=== PATIENT | female | born 1985 | race Caucasian/White ===

== ENCOUNTER 2017-04-13 22:45 | Emergency (ER) | payer MEDICAID ==
[~2017-04-13] VITALS: Ht 157.5 cm; Wt 53.0 kg
[~2017-04-13 22:45] MED LIST: ALLO300T2 PO; ALPR0.5T3 PO; BACT800T5 PO; FERR1TAB36 PO; HYDR25TA5 PO; MEDR150I IM; MICR10CA PO; PERC5TAB12 PO; PROM25TA5 PO; PYRI100T PO
[2017-04-13 22:55] VITALS: BP 102/71; PULSE 119; RESP 20; TEMP 98.2; O2SAT 98
[2017-04-13] MEDS ORDERED: ONDANSETRON HCL 4 MG/2 ML VIAL IV PUSH ONE (23:00)
[2017-04-13] MEDS ORDERED: PANTOPRAZOLE SODIUM 40 MG VIAL IV PUSH ONE (23:00)
[2017-04-13] MEDS ORDERED: SODIUM CHLOR 0.9% 1000 ML INJ 1,000 ML IV ONE ×2 (23:00)
[2017-04-13] MEDS ORDERED: HYDROmorphone HCL PF 2 MG/ML VIAL IV PUSH ONE (23:00)
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
[2017-04-13 23:25] LABS: AUTOMATED NEUTROPHIL # 5.1 TH/MM3 (1.8-7.7); BASOPHIL % 0.3 % (0.0-2.0); EOSINOPHIL # 0.2 TH/MM3 (0-0.4); EOSINOPHIL % 3.2 % (0.0-4.0); HEMO FLAGS DIFF FINAL; LYMPH % 27.2 % (9.0-44.0); LYMPHOCYTE # 2.1 TH/MM3 (1.0-4.8); MEAN CELL VOLUME 83.5 FL (80.0-100.0); MEAN CORPUSCULAR HEMOGLOBIN 27.8 PG (27.0-34.0); MEAN CORPUSCULAR HGB CONC 33.2 % (32.0-36.0); MONO % 4.6 % (0.0-8.0); NEUT % 64.7 % (16.0-70.0); PLATELET COUNT 277 TH/MM3 (150-450); RED BLOOD COUNT 5.27 MIL/MM3 (4.00-5.30); RED CELL DISTRIBUTION WIDTH 12.4 % (11.6-17.2); WHITE BLOOD COUNT 7.8 TH/MM3 (4.0-11.0)
[2017-04-13] MEDS ORDERED: ALUMINUM/MAGNESIUM/SIMETH 30 ML CUP PO ONE (23:30)
[2017-04-13 23:32] LABS: CHLORIDE 105 MEQ/L (98-107); POTASSIUM 3.9 MEQ/L (3.5-5.1); SODIUM (NA) 143 MEQ/L (136-145)
[2017-04-13 23:36] LABS: ANION GAP 7 MEQ/L (5-15); BLOOD UREA NITROGEN 16 MG/DL (7-18)
[2017-04-13 23:38] LABS: BLOOD, URINE LARGE (NEG); GLUCOSE,URINE NEG (NEG); KETONE, URINE NEG (NEG); NITRITE,URINE NEG (NEG)
[2017-04-13 23:38] LABS: ALT (GPT) 32 U/L (10-53)
[2017-04-13 23:39] LABS: AST (GOT) 23 U/L (15-37); GLOMERULAR FILTRATION RATE 74 ML/MIN (>89)
[2017-04-13 23:40] LABS: TOTAL BILIRUBIN ADULT 0.2 MG/DL (0.2-1.0)
[2017-04-13 23:41] LABS: ALKALINE PHOSPHATASE 79 U/L (45-117)
[2017-04-13] MEDS ORDERED: PROT40TA PO (23:44)
[2017-04-13 23:51] VITALS: BP 111/72; PULSE 97; RESP 19; O2SAT 98
[2017-04-13 23:54] LABS: URINE COLOR ORANGE (YELLW/STRAW)
[2017-04-13 23:55] LABS: MUCUS URINE FEW /lpf (OCC); RBC, URINE INNUM /hpf (0-3)
[2017-04-13 23:56] LABS: COMMENT (UR) CULT NOT INDICATED; CULTURE IF INDICATED CULT NOT INDICATED
[2017-04-14] MEDS ORDERED: FERR324T4 PO (00:07)
[2017-04-14] MEDS ORDERED: POTA4.25 PO (00:07)
[2017-04-14] MEDS ORDERED: TRAZ50TA12 PO (00:07)
[2017-04-14] MEDS ORDERED: PROZ40CA PO (00:07)
[2017-04-14 00:11] VITALS: BP 112/65
--- NOTE | 2017-04-14 16:35 | EKG ---
Date Performed: 04/13/2017 Time Performed: 22:51:20 PTAGE: 31 years EKG: Sinus tachycardia Possible right atrial abnormality Poor R wave progression - probable norm al variant Borderline ECG Compared to the PREVIOUS TRACING from 03/27/13, probably no significant change DOCTOR: Brett Reyes Interpretating Date/Time 04/14/2017 16:35:04
== END 2017-04-14 00:18 | disposition home or self-care (01) ==
LOC: PHED 22:45
DX: K22.70 Barrett's esophagus without dysplasia (principal); K29.70 Gastritis, unspecified, without bleeding; I25.10 Atherosclerotic heart disease of native coronary artery without angina pectoris; F17.210 Nicotine dependence, cigarettes, uncomplicated; Z87.442 Personal history of urinary calculi; R00.0 Tachycardia, unspecified
CPT/HCPCS: 80053; 81001; 83690; 85025; 93005; 96361; 96374; 96375; 99284; C9113; J1170; J2405; J7030

== ENCOUNTER 2017-04-14 11:45 | Emergency (ER) | payer MEDICAID ==
[~2017-04-14] VITALS: Ht 157.5 cm; Wt 52.0 kg
[~2017-04-14 11:45] MED LIST changes: +FERR324T4 PO; +POTA4.25 PO; +PROT40TA PO; +PROZ40CA PO; +TRAZ50TA12 PO
[2017-04-14 11:50] VITALS: BP 99/75; PULSE 114; RESP 18; TEMP 97.5; O2SAT 100
[2017-04-14] MEDS ORDERED: MORPHINE SULFATE 4 MG/ML INJ IM ONE (12:45)
[2017-04-14] MEDS ORDERED: LIDOCAINE VISCOUS 2% SOLN 15 ML UDC PO ONE (12:45)
[2017-04-14] MEDS ORDERED: ONDANSETRON HCL 4 MG/2 ML VIAL IV PUSH ONE (12:45)
[2017-04-14] MEDS ORDERED: ALUMINUM/MAGNESIUM/SIMETH 30 ML CUP PO ONE (12:45)
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
--- NOTE | 2017-04-15 14:03 | EKG ---
Date Performed: 04/14/2017 Time Performed: 11:44:28 PTAGE: 31 years EKG: Sinus tachycardia. Poor R wave progression - probable normal variant Borderline ECG Compare d to prior tracing no significant change PREVIOUS TRACING : 04/13/2017 22.51 DOCTOR: Carlo Hairston Interpretating Date/Time 04/15/2017 13:57:28
== END 2017-04-14 13:19 | disposition home or self-care (01) ==
LOC: PHEFT 11:45
DX: G89.4 Chronic pain syndrome (principal)
CPT/HCPCS: 93005; 96372; 96374; 99284; J2270; J2405

== ENCOUNTER 2017-04-26 14:37 | Emergency (ER) | payer MEDICAID ==
[~2017-04-26] VITALS: Ht 157.5 cm; Wt 48.0 kg
[~2017-04-26 14:37] MED LIST changes: -BACT800T5 PO; -FERR1TAB36 PO; -MICR10CA PO; -PROM25TA5 PO
[2017-04-26 14:45] VITALS: BP 128/88; PULSE 107; RESP 20; TEMP 98.1; O2SAT 100
[2017-04-26] MEDS ORDERED: SUCR1S PO (15:35)
[2017-04-26] MEDS ORDERED: PROM1SUP9 RECTAL (15:35)
--- NOTE | 2017-04-26 15:35 | PD ---
HPI Chief Complaint: Abdominal Pain Time Seen by Provider: 14:50 Travel History International Travel<30 days: No Contact w/Intl Traveler<30days: No Traveled to known affect area: No History of Present Illness HPI So 31 year-old woman presents emergency Department with recurrent epigastric abdominal pain associated with nausea vomiting. She describes both a keeping fluids down. She is a history of chronic recurrent abdominal pain attributed to colitis. She's had endometriosis in the past. She takes opiates regularly. She states this epigastric pain is new for her. Been persistent for the past several weeks. She's been try to get into see her GI doctor but has been unable to so far. She states she's been told she has delayed gastric emptying in the past. Does not appear history of gastritis or pancreatitis. She seen emergency department twice prior for the same symptoms. She had negative labs. History Past Medical History Narrative Medical Chronic recurrent abdominal pain Colitis : 1 Para: 1 Social History Alcohol Use: Yes (OCC) Tobacco Use: Yes (<1/2 PPD) Allergies-Medications (Allergen,Severity, Reaction): Coded Allergies: Cephalosporins (Verified Allergy, Severe, UNKNOWN, 04/26/17) PATIENT STATES " I DO NOT KNOW WHAT REACTION I GET" Cipro (Verified Allergy, Severe, RASH, 04/26/17) Dilantin (Verified Allergy, Severe, Rash, 04/26/17) Erythromycins (Verified Allergy, Severe, UNKNOWN REACTION, 04/26/17) Penicillin (Verified Allergy, Severe, UNKNOWN, 04/26/17) PATIENT STATES " I DO NOT KNOW WHAT REACTION I GET" Reglan (Verified Allergy, Severe, Restlessness, 04/26/17) Nonsteroidal Anti-Inflammatory Agts (Verified Adverse Reaction, Severe, SEVERE ABD PAIN, 04/26/17) Toradol (Verified Adverse Reaction, Unknown, 04/26/17) PT REQUESTED TO ADD TORADOL DUE TO HER GI ISSUES Reported Meds & Prescriptions Reported Meds & Active Scripts Active Promethazine Supp (Promethazine HCl) 25 Mg Supp 25 Mg RECTAL Q6H PRN Sucralfate Liq (Sucralfate) 1 Gm/10 Ml Paige 1 Gm PO QID on empty stomach Protonix (Pantoprazole Sodium) 40 Mg Tab 40 Mg PO DAILY Reported Trazodone (Trazodone HCl) 50 Mg Tab 200 Mg PO HS Prozac (Fluoxetine HCl) 40 Mg Cap 40 Mg PO DAILY Potassium Citrate ER 15 Meq Tab 15 Meq PO TID Ferrous Sulfate DR (Ferrous Sulfate) 324 Mg Tabdr 324 Mg PO TID Percocet (Oxycodone-Acetaminophen) 5-325 mg Tab 1-2 Tab PO Q4H PRN Vitamin B-6 (Pyridoxine HCl) 100 Mg Tab 100 Mg PO DAILY Medroxyprogesterone Inj 150 Mg/Ml Inj 150 Mg IM Q90D Hydrochlorothiazide 25 Mg Tab 25 Mg PO DAILY Alprazolam 0.5 Mg Tab 0.5 Mg PO Q8H Allopurinol 300 Mg Tab 300 Mg PO DAILY Review of Systems Except as stated in HPI: all other systems reviewed are Neg Physical Exam Narrative GENERAL: Well-appearing 31 year-old woman, thin, appears uncomfortable but nontoxic. SKIN: Focused skin assessment warm/dry. NECK: Trachea midline. No JVD. CARDIOVASCULAR: Regular rate and rhythm. No murmur appreciated. RESPIRATORY: No accessory muscle use. Clear to auscultation. Breath sounds equal bilaterally. GASTROINTESTINAL: Abdomen soft, non-tender, nondistended. Hepatic and splenic margins not palpable. RECTAL: Light brown stool in rectal vault. Guaiac negative. MUSCULOSKELETAL: No obvious deformities. No clubbing. No cyanosis. No edema. NEUROLOGICAL: Awake and alert. No obvious cranial nerve deficits. Motor grossly within normal limits. Normal speech. Data Data Last Documented VS Vital Signs Date Time Temp Pulse Resp B/P Pulse Ox O2 Delivery O2 Flow Rate FiO2 04/26/17 14:45 98.1 107 20 128/88 100 Orders Al-Mag Hy-Si 40-40-4 Mg/Ml Liq (Mag-Al P (04/26/17 15:45) Lidocaine 2% Viscous (Xylocaine 2% Visco (04/26/17 15:45) Ondansetron Odt (Zofran Odt) (04/26/17 15:45) Prochlorperazine Inj (Compazine Inj) (04/26/17 16:00) MDM Medical Decision Making Medical Screen Exam Complete: Yes Emergency Medical Condition: Yes Medical Record Reviewed: Yes Differential Diagnosis Acute recurrent abdominal pain, gastritis, pancreatitis, narcotic bowel, gastroparesis, other Narrative Course Medical decision making 31 year-old woman with multiple abdominal problems. She said has had recurrent problems worsened recently. She is not been able to follow-up with her GI doctor. She may be having some worsening gastroparesis episodes, may be having more gastritis episodes. Previous labs were negative. I don't think she has cholecystitis. Lipase was normal with this episode earlier. She certainly seems uncomfortable. Some of this may be tied into her chronic opiate use as well. She's has filled 180 Percocet in the last month alone. We'll recommend she continue her PPI, she states promethazine better than Zofran for her. We' ll add sucralfate. We'll recommend follow-up with her GI doctor soon as possible for further evaluation of the symptoms. Diagnosis Primary Impression: Chronic pain Additional Impression: Gastritis Additional Instructions: Take sucralfate in addition to current medications. Follow-up with your wire dropper at the first available appointment. Use Phenergan as needed for nausea or vomiting. Med/Other Pt SpecificInfo: Prescription(s) given Scripts Promethazine Supp 25 Mg Supp25 Mg RECTAL Q6H PRN (NAUSEA OR VOMITING) #20 SUPP Ref 0 Prov:Sanju Cronin MD 04/26/17 Sucralfate Liq 1 Gm/10 Ml Sus1 Gm PO QID #1200 ML on empty stomach Prov:Sanju Cronin MD 04/26/17 Disposition: 01 DISCHARGE HOME Condition: Stable Sanju Cronin MD Apr 26, 2017 15:35 Sanju Cronin MD Apr 26, 2017 15:35
[2017-04-26] MEDS ORDERED: ALUMINUM/MAGNESIUM/SIMETH 30 ML CUP PO ONE ×2 (15:45→17:00)
[2017-04-26] MEDS ORDERED: LIDOCAINE VISCOUS 2% SOLN 15 ML UDC PO ONE ×2 (15:45→17:00)
[2017-04-26] MEDS ORDERED: ONDANSETRON ODT 4 MG TAB PO ONE (15:45)
[2017-04-26] MEDS ORDERED: PROCHLORPERAZINE INJ 10 MG/2 ML VIAL IM ONE (16:00)
[2017-04-26] MEDS ORDERED: diphenhydrAMINE HCL 50 MG/ML VIAL IM ONE (16:15)
--- NOTE | 2017-04-26 16:48 | PD ---
Data Data Last Documented VS Vital Signs Date Time Temp Pulse Resp B/P Pulse Ox O2 Delivery O2 Flow Rate FiO2 04/26/17 17:03 101 20 110/72 100 04/26/17 14:45 98.1 Orders Al-Mag Hy-Si 40-40-4 Mg/Ml Liq (Mag-Al P (04/26/17 15:45) Lidocaine 2% Viscous (Xylocaine 2% Visco (04/26/17 15:45) Ondansetron Odt (Zofran Odt) (04/26/17 15:45) Prochlorperazine Inj (Compazine Inj) (04/26/17 16:00) Diphenhydramine Inj (Benadryl Inj) (04/26/17 16:15) Complete Blood Count With Diff (04/26/17 16:47) Comprehensive Metabolic Panel (04/26/17 16:47) Lipase (04/26/17 16:47) Urinalysis - C+S If Indicated (04/26/17 16:47) Iv Access Insert/Monitor (04/26/17 16:47) Ecg Monitoring (04/26/17 16:47) Oximetry (04/26/17 16:47) Sodium Chloride 0.9% Flush (Ns Flush) (04/26/17 17:00) Al-Mag Hy-Si 40-40-4 Mg/Ml Liq (Mag-Al P (04/26/17 17:00) Lidocaine 2% Viscous (Xylocaine 2% Visco (04/26/17 17:00) Ed Urine Pregnancytest Poc (04/26/17 16:47) Urine Culture (04/26/17 16:55) Labs Laboratory Tests Test 04/26/17 04/26/17 16:50 16:55 White Blood Count 5.9 TH/MM3 Red Blood Count 5.21 MIL/MM3 Hemoglobin 14.2 GM/DL Hematocrit 41.6 % Mean Corpuscular Volume 79.9 FL Mean Corpuscular Hemoglobin 27.2 PG Mean Corpuscular Hemoglobin 34.0 % Concent Red Cell Distribution Width 11.6 % Platelet Count 271 TH/MM3 Mean Platelet Volume 7.2 FL Neutrophils (%) (Auto) 67.8 % Lymphocytes (%) (Auto) 23.0 % Monocytes (%) (Auto) 6.5 % Eosinophils (%) (Auto) 1.6 % Basophils (%) (Auto) 1.1 % Neutrophils # (Auto) 3.9 TH/MM3 Lymphocytes # (Auto) 1.4 TH/MM3 Monocytes # (Auto) 0.4 TH/MM3 Eosinophils # (Auto) 0.1 TH/MM3 Basophils # (Auto) 0.1 TH/MM3 CBC Comment DIFF FINAL Differential Comment Sodium Level 141 MEQ/L Potassium Level 4.0 MEQ/L Chloride Level 106 MEQ/L Carbon Dioxide Level 26.0 MEQ/L Anion Gap 9 MEQ/L Blood Urea Nitrogen 13 MG/DL Creatinine 0.77 MG/DL Estimat Glomerular Filtration 87 ML/MIN Rate Random Glucose 103 MG/DL Calcium Level 9.3 MG/DL Total Bilirubin 0.3 MG/DL Aspartate Amino Transf 23 U/L (AST/SGOT) Alanine Aminotransferase 28 U/L (ALT/SGPT) Alkaline Phosphatase 69 U/L Total Protein 7.4 GM/DL Albumin 3.8 GM/DL Lipase 188 U/L Urine Color YELLOW Urine Turbidity CLOUDY Urine pH 8.0 Urine Specific [place] 1.021 Urine Protein NEG mg/dL Urine Glucose (UA) NEG mg/dL Urine Ketones NEG mg/dL Urine Occult Blood NEG Urine Nitrite NEG Urine Bilirubin NEG Urine Leukocyte Esterase SMALL Urine RBC 0-3 /hpf Urine WBC 9-14 /hpf Urine Squamous Epithelial 0-5 /hpf Cells Urine Amorphous Sediment LARGE Urine Bacteria RARE /hpf Microscopic Urinalysis Comment CULTURE INDICATED MDM Supervised Visit with VANIA: No Narrative Course Patient is a 31-year-old female with a history of chronic abdominal pain presents emergency Department with epigastric burning and acid taste in her mouth present for the past 2 days. Patient states she's been trying to get to see her GI doctor as well as her roof cement and paint maker helper and not been able to and decided to come into the emergency department seen. She denies any fevers. Was asked to see the patient by nursing as she states that she is still having significant discomfort after Phenergan and Benadryl as well as a GI cocktail. Nursing states that they think that she spit up her GI cocktail. I reviewed the patient's a force been on 67 the patient received 90 tablets of oxycodone 10 mg. Patient states she tried these at home but states that it made her pain worse. We'll repeat a GI cocktail and basic labs including lipase at this point. Patient and workup in this department earlier this month including basic labs and was discharged after morphine completely relieved her symptoms but she states this pain is different from the pain she was having before. Symptoms are highly consistent with reflux symptoms. Patient was given a GI cocktail, she was observed in the emergency department and appears quite comfortable and in no obvious distress. I revisited the patient states that she still felt quite comfortable, her labs reviewed with her and CBC CMP and lipase within normal limits. She does have a minimal evidence of urinary tract infection and will be placed on doxycycline and given her multiple medication allergies. Head and at length discussion with the patient about her symptoms at this time I don't think a CAT scan is warranted it was offered to her given she states she feels very uncomfortable but in my opinion is that the risks of radiation exposure outweigh the pretest probability. She agrees to postpone CAT scanning. She states she would just like to feel more comfortable before she goes home. I discussed with her that I don't know if I have anything else to offer her for her symptoms here in the emergency department. I have asked her for her opinions as to where her treatment should proceed at this point and she states that she "is just looking for a quick fix". When asked to clarify she states that she just wants her discomfort to be isolated and fixed. I reiterated that unfortunately I am incapable fixing her symptoms at this time and recommended that she follow up with her GI physician for consideration of endoscopy. She will be placed on Protonix recommended Tums as needed. She is stable for discharge at this time. She related from the emergency department in no obvious distress talking on the cell phone. Diagnosis Primary Impression: Chronic pain Additional Impressions: Gastritis UTI (urinary tract infection) Referrals: Pennie Cotter MD (PCP) call for appointment Bulb Grader call for appointment Patient Instructions: General Instructions, Gastritis (ED), Chronic Abdominal Pain (ED) Departure Forms: Tests/Procedures Additional Instruction: Take sucralfate in addition to current medications. Follow-up with your slab tripper at the first available appointment. Use Phenergan as needed for nausea or vomiting. Also recommend that she follow up with Ze rogers and your roof cement and paint maker helper for consideration of scaling back your need for opiate medications. Scripts Doxycycline Hyclate 100 Mg [id number] Mg PO BID 7 Days Ref 0 Prov:Roberto Prater MD 6/19/17 Pantoprazole (Protonix)40 Mg Tab40 Mg PO DAILY #30 TAB Ref 0 Prov:Roberto Prater MD 04/26/17 Promethazine Supp 25 Mg Supp25 Mg RECTAL Q6H PRN (NAUSEA OR VOMITING) #20 SUPP Ref 0 Prov:Sanju Cronin MD 04/26/17 Sucralfate Liq 1 Gm/10 Ml Sus1 Gm PO QID #1200 ML on empty stomach Prov:Sanju Cronin MD 04/26/17 Disposition: 01 DISCHARGE HOME Condition: Stable Roberto Prater MD Apr 26, 2017 16:48
[2017-04-26 16:58] VITALS: O2SAT 98
[2017-04-26] MEDS ORDERED: SODIUM CHLORIDE 0.9% FLUSH 10 ML FLUSH IV FLUSH PRN (17:00)
[2017-04-26 17:02] LABS: BLOOD, URINE NEG (NEG); GLUCOSE,URINE NEG (NEG); KETONE, URINE NEG (NEG); NITRITE,URINE NEG (NEG)
[2017-04-26 17:03] VITALS: BP 110/72; PULSE 101; RESP 20; O2SAT 100
[2017-04-26 17:03] LABS: AUTOMATED NEUTROPHIL # 3.9 TH/MM3 (1.8-7.7); BASOPHIL # 0.1 TH/MM3 (0-0.2); BASOPHIL % 1.1 % (0.0-2.0); EOSINOPHIL # 0.1 TH/MM3 (0-0.4); EOSINOPHIL % 1.6 % (0.0-4.0); HEMATOCRIT 41.6 % (35.0-46.0); HEMO FLAGS DIFF FINAL; LYMPHOCYTE # 1.4 TH/MM3 (1.0-4.8); MEAN CELL VOLUME 79.9 FL (80.0-100.0); MEAN CORPUSCULAR HEMOGLOBIN 27.2 PG (27.0-34.0); MONO % 6.5 % (0.0-8.0); NEUT % 67.8 % (16.0-70.0); PLATELET COUNT 271 TH/MM3 (150-450); RED BLOOD COUNT 5.21 MIL/MM3 (4.00-5.30); RED CELL DISTRIBUTION WIDTH 11.6 % (11.6-17.2); WHITE BLOOD COUNT 5.9 TH/MM3 (4.0-11.0)
[2017-04-26 17:09] LABS: URINE COLOR YELLOW (YELLW/STRAW)
[2017-04-26 17:10] LABS: BACTERIA, URINE RARE /hpf; COMMENT (UR) CULTURE INDICATED; CULTURE IF INDICATED CULTURE INDICATED; RBC, URINE 0-3 /hpf (0-3); SQUAMOUS EPITHELIAL CELL URINE 0-5 /hpf (0-5)
[2017-04-26 17:14] LABS: CHLORIDE 106 MEQ/L (98-107); SODIUM (NA) 141 MEQ/L (136-145)
[2017-04-26 17:18] LABS: ANION GAP 9 MEQ/L (5-15); BLOOD UREA NITROGEN 13 MG/DL (7-18)
[2017-04-26 17:20] LABS: ALT (GPT) 28 U/L (10-53)
[2017-04-26 17:21] LABS: AST (GOT) 23 U/L (15-37); GLOMERULAR FILTRATION RATE 87 ML/MIN (>89)
[2017-04-26 17:22] LABS: TOTAL BILIRUBIN ADULT 0.3 MG/DL (0.2-1.0)
[2017-04-26 17:23] LABS: ALKALINE PHOSPHATASE 69 U/L (45-117)
[2017-04-26] MEDS ORDERED: DOXY100C PO (17:39)
[2017-04-26] MEDS ORDERED: PROT40TA PO (17:39)
== END 2017-04-26 17:50 | disposition home or self-care (01) ==
LOC: PHED 14:37
DX: G89.29 Other chronic pain (principal); K29.70 Gastritis, unspecified, without bleeding; N39.0 Urinary tract infection, site not specified; F17.210 Nicotine dependence, cigarettes, uncomplicated
CPT/HCPCS: 80053; 81001; 83690; 84703; 85025; 87086; 96372; 99284; J0780; J1200

== ENCOUNTER 2017-06-15 01:20 | Emergency (ER) | payer MEDICAID ==
[~2017-06-15] VITALS: Ht 157.5 cm; Wt 49.5 kg
[~2017-06-15 01:20] MED LIST changes: +DOXY100C PO; +PROM1SUP9 RECTAL; +SUCR1S PO
[2017-06-15 01:28] VITALS: BP 120/87; PULSE 90; RESP 18; TEMP 97.4; O2SAT 100
[2017-06-15 01:43] VITALS: BP 120/87; PULSE 90; RESP 18; TEMP 97.4; O2SAT 100
[2017-06-15] MEDS ORDERED: ONDANSETRON HCL 4 MG/2 ML VIAL IV PUSH ONE (02:15)
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
[2017-06-15 02:26] LABS: AUTOMATED NEUTROPHIL # 3.2 TH/MM3 (1.8-7.7); BASOPHIL # 0.2 TH/MM3 (0-0.2); BASOPHIL % 2.9 % (0.0-2.0); BLOOD, URINE TRACE (NEG); EOSINOPHIL # 0.2 TH/MM3 (0-0.4); EOSINOPHIL % 3.2 % (0.0-4.0); GLUCOSE,URINE NEG (NEG); HEMO FLAGS DIFF FINAL; KETONE, URINE 40 mg/dL (NEG); LYMPH % 37.1 % (9.0-44.0); LYMPHOCYTE # 2.4 TH/MM3 (1.0-4.8); MEAN CELL VOLUME 82.6 FL (80.0-100.0); MEAN CORPUSCULAR HEMOGLOBIN 26.6 PG (27.0-34.0); MEAN CORPUSCULAR HGB CONC 32.2 % (32.0-36.0); NEUT % 52.8 % (16.0-70.0); NITRITE,URINE NEG (NEG); PLATELET COUNT 286 TH/MM3 (150-450); RED BLOOD COUNT 5.57 MIL/MM3 (4.00-5.30); RED CELL DISTRIBUTION WIDTH 13.1 % (11.6-17.2); WHITE BLOOD COUNT 6.3 TH/MM3 (4.0-11.0)
[2017-06-15 02:30] LABS: URINE COLOR YELLOW (YELLW/STRAW)
[2017-06-15 02:31] LABS: WBC, URINE 15-19 /hpf (0-5)
[2017-06-15 02:32] LABS: BACTERIA, URINE FEW /hpf; SQUAMOUS EPITHELIAL CELL URINE > 8 /hpf (0-5)
[2017-06-15 02:33] LABS: CALCIUM OXALATE CRYSTALS,URINE FEW /hpf; COMMENT (UR) CULTURE INDICATED; CULTURE IF INDICATED CULTURE INDICATED; MUCUS URINE MOD /lpf (OCC); POTASSIUM 3.4 MEQ/L (3.5-5.1)
[2017-06-15 02:36] LABS: BICARBONATE 23.7 MEQ/L (21.0-32.0)
[2017-06-15] MEDS ORDERED: ZOFR4TAB3 SL (02:51)
[2017-06-15] MEDS ORDERED: BACT800T5 PO (02:51)
[2017-06-15] MEDS ORDERED: SULFAMETHOXAZOLE-TRIMETHOPRIM DS 800-160 MG TAB PO ONE (03:00)
[2017-06-15] MEDS ORDERED: SODIUM CHLOR 0.9% 1000 ML INJ 1,000 ML IV ONE (03:00)
[2017-06-15] MEDS ORDERED: diphenhydrAMINE HCL 50 MG/ML VIAL IV PUSH ONE (03:00)
== END 2017-06-15 03:11 | disposition home or self-care (01) ==
LOC: PHED 01:20
DX: N39.0 Urinary tract infection, site not specified (principal); G89.4 Chronic pain syndrome; I25.10 Atherosclerotic heart disease of native coronary artery without angina pectoris; F17.210 Nicotine dependence, cigarettes, uncomplicated; Z87.442 Personal history of urinary calculi
CPT/HCPCS: 80048; 81001; 84703; 85025; 87086; 96374; 96375; 99284; J1200; J2405

== ENCOUNTER 2018-02-17 20:00 | Emergency (ER) | payer MEDICAID ==
[~2018-02-17] VITALS: Ht 157.5 cm; Wt 46.3 kg
[~2018-02-17 20:00] MED LIST changes: +BACT800T5 PO; -DOXY100C PO; -MEDR150I IM; -SUCR1S PO; +ZOFR4TAB3 SL
[2018-02-17 20:16] VITALS: BP 138/108; PULSE 113; RESP 18; TEMP 98.9; O2SAT 99
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
[2018-02-17] MEDS ORDERED: SODIUM CHLOR 0.9% 1000 ML INJ 1,000 ML IV ONE (21:16)
[2018-02-17 21:30] VITALS: BP 105/72; PULSE 89; RESP 18; O2SAT 98
[2018-02-17] MEDS ORDERED: SODIUM CHLORIDE 0.9% FLUSH 10 ML FLUSH IVF PRN (21:30)
[2018-02-17] MEDS ORDERED: MORPHINE SULFATE 4 MG/ML INJ IV PUSH ONE (21:30)
[2018-02-17] MEDS ORDERED: ONDANSETRON HCL 4 MG/2 ML VIAL IV PUSH ONE (21:30)
[2018-02-17 22:05] VITALS: BP 110/78; PULSE 75; RESP 18; O2SAT 96
--- NOTE | 2018-02-17 22:05 | RADRPT ---
EXAM DATE/TIME: 02/17/2018 21:42 [facility] COMPARISON: CT ABDOMEN & PELVIS W/O CONTRAST, May 11, 2016, 20:43. INDICATIONS : Left flank pain. History of bilateral renal calculi and obstruction. ORAL CONTRAST: No oral contrast ingested. RADIATION DOSE: 3.97 CTDIvol (mGy) MEDICAL HISTORY : Colitis. Endometriosis. SURGICAL HISTORY : Cervical cone. ENCOUNTER: Initial ACUITY: 2 weeks PAIN SCALE: 8/10 LOCATION: Left flank TECHNIQUE: Volumetric scanning of the abdomen and pelvis was performed. Using automated exposure control and ad justment of the mA and/or kV according to patient size, radiation dose was kept as low as reasonably achievable to obtain optimal diagnostic quality images. DICOM format image data is available electro nically for review and comparison. FINDINGS: LOWER LUNGS: The visualized lower lungs are clear. LIVER: Homogeneous density without lesion. There is no dilation of the biliary tree. No calcified gallston es. SPLEEN: Normal size without lesion. PANCREAS: Within normal limits. KIDNEYS: Normal in size and shape. There are multiple small bilateral 1-2 mm renal calculi with no obstruction . The visualized portions of the ureters are unremarkable. There are low-attenuation areas in the lef t kidney likely representing cysts. ADRENAL GLANDS: Within normal limits. VASCULAR: There is no aortic aneurysm. BOWEL/MESENTERY: The stomach, small bowel, and colon demonstrate no acute abnormality. There is no free intraperitone al air or fluid. ABDOMINAL WALL: Within normal limits. RETROPERITONEUM: There is no lymphadenopathy. BLADDER: No wall thickening or mass. REPRODUCTIVE: Within normal limits. INGUINAL: There is no lymphadenopathy or hernia. MUSCULOSKELETAL: Within normal limits for patient age. CONCLUSION: 1. Multiple small bilateral renal calculi with no evidence of obstruction. 2. Probable left renal cysts. Remi Lucio MD on February 17, 2018 at 22:00 Board Certified Radiologist. This report was verified electronically.
[2018-02-17 22:06] LABS: AUTOMATED NEUTROPHIL # 4.3 TH/MM3 (1.8-7.7); BASOPHIL # 0.3 TH/MM3 (0-0.2); BASOPHIL % 3.7 % (0.0-2.0); EOSINOPHIL # 0.1 TH/MM3 (0-0.4); EOSINOPHIL % 0.8 % (0.0-4.0); HEMATOCRIT 46.8 % (35.0-46.0); HEMOGLOBIN 15.8 GM/DL (11.6-15.3); LYMPH % 25.5 % (9.0-44.0); LYMPHOCYTE # 1.8 TH/MM3 (1.0-4.8); MEAN CELL VOLUME 81.6 FL (80.0-100.0); MEAN CORPUSCULAR HEMOGLOBIN 27.6 PG (27.0-34.0); MEAN CORPUSCULAR HGB CONC 33.8 % (32.0-36.0); MEAN PLATELET VOLUME 8.4 FL (7.0-11.0); MONO % 5.2 % (0.0-8.0); MONOCYTE # 0.4 TH/MM3 (0-0.9); NEUT % 64.8 % (16.0-70.0); PLATELET COUNT 278 TH/MM3 (150-450); RED BLOOD COUNT 5.73 MIL/MM3 (4.00-5.30); RED CELL DISTRIBUTION WIDTH 12.3 % (11.6-17.2); WHITE BLOOD COUNT 6.9 TH/MM3 (4.0-11.0)
[2018-02-17 22:09] LABS: CALCIUM 9.3 MG/DL (8.5-10.1)
[2018-02-17 22:10] LABS: BICARBONATE 26.9 MEQ/L (21.0-32.0)
[2018-02-17 22:14] LABS: CREATININE 0.72 MG/DL (0.50-1.00)
[2018-02-17 22:25] LABS: BILIRUBIN, URINE NEG (NEG); BLOOD, URINE SMALL (NEG); GLUCOSE,URINE NEG (NEG); KETONE, URINE NEG (NEG); NITRITE,URINE NEG (NEG); URINE COLOR YELLOW (YELLW/STRAW); URINE LEUKOCYTE ESTERASE NEG (NEG)
[2018-02-17 22:29] LABS: WBC, URINE 0-2 /hpf (0-5)
[2018-02-17 22:30] LABS: AMORPHOUS SEDIMENT, URINE LARGE; SQUAMOUS EPITHELIAL CELL URINE 0-5 /hpf (0-5)
[2018-02-17 23:13] VITALS: BP 104/74
== END 2018-02-17 23:13 | disposition home or self-care (01) ==
LOC: PHED 20:00
DX: G89.29 Other chronic pain (principal); I25.10 Atherosclerotic heart disease of native coronary artery without angina pectoris; F41.0 Panic disorder [episodic paroxysmal anxiety]; F17.200 Nicotine dependence, unspecified, uncomplicated; Z87.442 Personal history of urinary calculi
CPT/HCPCS: 74176; 80048; 81001; 85025; 96361; 96374; 96375; 99284; J2270; J2405; J7030

== ENCOUNTER 2018-02-21 19:09 | Inpatient (IN) | payer MEDICAID ==
[~2018-02-21] VITALS: Ht 157.5 cm; Wt 55.0 kg
[2018-02-21 19:17] VITALS: BP 118/82; PULSE 101; RESP 16; TEMP 98.8; O2SAT 99
[2018-02-21] MEDS ORDERED: SODIUM CHLOR 0.9% 1000 ML INJ 1,000 ML IV ONE (19:18)
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
[2018-02-21] MEDS ORDERED: OXcarbazepine 600 MG TAB PO ONE ×2 (19:30→20:30)
[2018-02-21] MEDS ORDERED: SODIUM CHLORIDE 0.9% FLUSH 10 ML FLUSH IVF PRN (19:30)
[2018-02-21 19:40] LABS: BASOPHIL # 0.1 TH/MM3 (0-0.2); BASOPHIL % 2.4 % (0.0-2.0); EOSINOPHIL # 0.2 TH/MM3 (0-0.4); EOSINOPHIL % 4.2 % (0.0-4.0); HEMATOCRIT 43.9 % (35.0-46.0); HEMOGLOBIN 14.5 GM/DL (11.6-15.3); LYMPH % 30.6 % (9.0-44.0); LYMPHOCYTE # 1.6 TH/MM3 (1.0-4.8); MEAN CELL VOLUME 81.2 FL (80.0-100.0); MEAN CORPUSCULAR HEMOGLOBIN 26.8 PG (27.0-34.0); MEAN PLATELET VOLUME 8.5 FL (7.0-11.0); MONO % 6.3 % (0.0-8.0); MONOCYTE # 0.3 TH/MM3 (0-0.9); NEUT % 56.5 % (16.0-70.0); PLATELET COUNT 264 TH/MM3 (150-450); RED BLOOD COUNT 5.41 MIL/MM3 (4.00-5.30); WHITE BLOOD COUNT 5.2 TH/MM3 (4.0-11.0)
[2018-02-21 19:44] VITALS: O2SAT 99
[2018-02-21 19:47] LABS: CHLORIDE 104 MEQ/L (98-107); SODIUM (NA) 137 MEQ/L (136-145)
[2018-02-21 19:50] LABS: CALCIUM 8.7 MG/DL (8.5-10.1)
[2018-02-21 19:51] LABS: ALBUMIN 3.7 GM/DL (3.4-5.0); BICARBONATE 25.1 MEQ/L (21.0-32.0); BLOOD UREA NITROGEN 11 MG/DL (7-18); GLUCOSE,RANDOM 79 MG/DL (74-106)
[2018-02-21] MEDS ORDERED: LORazepam 2 MG/ML VIAL ONE (19:53)
[2018-02-21 19:54] LABS: ALT (GPT) 24 U/L (10-53); AST (GOT) 15 U/L (15-37); GLOMERULAR FILTRATION RATE 83 ML/MIN (>89)
[2018-02-21 19:55] LABS: BILIRUBIN, URINE NEG (NEG); BLOOD, URINE NEG (NEG); GLUCOSE,URINE NEG (NEG); KETONE, URINE NEG (NEG); NITRITE,URINE NEG (NEG); PH, URINE 6.5 (5.0-8.5); URINE COLOR YELLOW (YELLW/STRAW); URINE LEUKOCYTE ESTERASE NEG (NEG)
[2018-02-21 19:55] LABS: TOTAL BILIRUBIN ADULT 0.1 MG/DL (0.2-1.0)
[2018-02-21 19:56] LABS: TOTAL PROTEIN 7.4 GM/DL (6.4-8.2)
[2018-02-21 19:57] LABS: ALKALINE PHOSPHATASE 108 U/L (45-117)
[2018-02-21] MEDS ORDERED: LORazepam 2 MG/ML VIAL IV PUSH ONE ×3 (20:00→22:45)
[2018-02-21 20:11] LABS: SQUAMOUS EPITHELIAL CELL URINE 0-5 /hpf (0-5)
[2018-02-21 20:12] LABS: AMORPHOUS SEDIMENT, URINE MOD; MUCUS URINE OCC /lpf (OCC)
[2018-02-21 20:30] VITALS: BP 110/63; PULSE 95; RESP 16; O2SAT 100
--- NOTE | 2018-02-21 21:25 | RADRPT ---
EXAM DATE/TIME: 02/21/2018 20:41 [facility] COMPARISON: No previous studies available for comparison. INDICATIONS : Seizure. Fall. RADIATION DOSE: 49.39 CTDIvol (mGy) MEDICAL HISTORY : Seizures. SURGICAL HISTORY : None. ENCOUNTER: Initial ACUITY: 1 day PAIN SCALE: 8/10 LOCATION: cranial TECHNIQUE: Multiple contiguous axial images were obtained of the head. Using automated exposure control and adj ustment of the mA and/or kV according to patient size, radiation dose was kept as low as reasonably a chievable to obtain optimal diagnostic quality images. DICOM format image data is available electro nically for review and comparison. FINDINGS: CEREBRUM: The ventricles are normal for age. No evidence of midline shift, mass lesion, hemorrhage or acute in farction. No extra-axial fluid collections are seen. 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 POSTERIOR FOSSA: The cerebellum and brainstem are intact. The 4th ventricle is midline. The cerebellopontine angle i s unremarkable. EXTRACRANIAL: The visualized portion of the orbits is intact. SKULL: The calvaria is intact. No evidence of skull fracture. CONCLUSION: No acute disease. Pop Rivera MD on February 21, 2018 at 21:22 Board Certified Radiologist. This report was verified electronically.
[2018-02-21 21:30] VITALS: BP 103/50; PULSE 90; RESP 16; TEMP 97; O2SAT 100
[2018-02-21] MEDS ORDERED: SENNOSIDES 8.6 MG TAB PO PRN (21:30)
[2018-02-21] MEDS ORDERED: LORazepam 2 MG/ML VIAL IV PUSH PRN (21:30)
[2018-02-21] MEDS ORDERED: BISACODYL 10 MG SUPP RECTAL PRN (21:30)
[2018-02-21] MEDS ORDERED: ACETAMINOPHEN 325 MG TAB PO PRN (21:30)
[2018-02-21] MEDS ORDERED: LACTULOSE SYRUP 20 GM/30 ML CUP PO PRN (21:30)
[2018-02-21] MEDS ORDERED: SODIUM CHLORIDE 0.9% FLUSH 10 ML FLUSH IV FLUSH PRN (21:30)
[2018-02-21] MEDS ORDERED: MISCELLANEOUS NURSING INFORMATION XX SCH (21:30)
[2018-02-21] MEDS ORDERED: CHLORHEXIDINE GLUCONATE 2 % 1 PACK (2 CLOTHS) TOP PRN (21:30)
[2018-02-21] MEDS ORDERED: MAGNESIUM HYDROXIDE SUSP 30 ML CUP PO PRN (21:30)
[2018-02-21] MEDS ORDERED: RESP: ALBUTEROL 2.5 MG/3 ML NEB (PRN) INH (21:30)
[2018-02-21] MEDS ORDERED: ONDANSETRON HCL 4 MG/2 ML VIAL IV PUSH PRN (21:30)
[2018-02-21] MEDS: SODIUM CHLOR 0.9% 1000 ML INJ 1,000 ML IV SCH (22:36)
[2018-02-21 23:19] VITALS: BP 129/75; PULSE 98; RESP 18; O2SAT 100
[2018-02-22] VITALS (11 sets, daily range): BP systolic 72–128; BP diastolic 45–77; PULSE 82–112; RESP 16–18; TEMP 99.9–100; O2SAT 97–100
[2018-02-22] MEDS ORDERED: PHENYTOIN INJ 1,000 MG in SODIUM CHLORIDE 0.9% INJ 100 ML IV ONE ×4 (01:30)
[2018-02-22] MEDS ORDERED: CHLORHEXIDINE GLUCONATE 2 % 1 PACK (2 CLOTHS) TOP SCH (04:00)
[2018-02-22] MEDS ORDERED: TRIL600T PO ×2 (06:06→10:25)
[2018-02-22 07:07] LABS: AUTOMATED NEUTROPHIL # 10.5 TH/MM3 (1.8-7.7); BASOPHIL # 0.2 TH/MM3 (0-0.2); BASOPHIL % 1.6 % (0.0-2.0); EOSINOPHIL % 0.2 % (0.0-4.0); HEMATOCRIT 41.1 % (35.0-46.0); HEMOGLOBIN 13.7 GM/DL (11.6-15.3); LYMPH % 3.2 % (9.0-44.0); LYMPHOCYTE # 0.4 TH/MM3 (1.0-4.8); MEAN CELL VOLUME 81.6 FL (80.0-100.0); MEAN CORPUSCULAR HEMOGLOBIN 27.2 PG (27.0-34.0); MEAN CORPUSCULAR HGB CONC 33.3 % (32.0-36.0); MEAN PLATELET VOLUME 7.6 FL (7.0-11.0); MONO % 1.4 % (0.0-8.0); MONOCYTE # 0.2 TH/MM3 (0-0.9); NEUT % 93.6 % (16.0-70.0); PLATELET COUNT 217 TH/MM3 (150-450); RED BLOOD COUNT 5.04 MIL/MM3 (4.00-5.30); RED CELL DISTRIBUTION WIDTH 12.6 % (11.6-17.2); WHITE BLOOD COUNT 11.3 TH/MM3 (4.0-11.0)
[2018-02-22 07:14] LABS: CHLORIDE 111 MEQ/L (98-107); SODIUM (NA) 142 MEQ/L (136-145)
[2018-02-22 07:18] LABS: PROTHROMBIN TIME - PATIENT 10.5 SEC (9.8-11.6)
[2018-02-22 07:23] LABS: ALBUMIN 3.2 GM/DL (3.4-5.0); ALKALINE PHOSPHATASE 86 U/L (45-117); ALT (GPT) 18 U/L (10-53); AST (GOT) 14 U/L (15-37); BICARBONATE 25.8 MEQ/L (21.0-32.0); BLOOD UREA NITROGEN 8 MG/DL (7-18); CALCIUM 7.6 MG/DL (8.5-10.1); CREATININE 0.67 MG/DL (0.50-1.00); GLOMERULAR FILTRATION RATE 101 ML/MIN (>89); GLUCOSE,RANDOM 88 MG/DL (74-106); MAGNESIUM 1.7 MG/DL (1.5-2.5); PHOSPHORUS 2.2 MG/DL (2.5-4.9); TOTAL BILIRUBIN ADULT 0.3 MG/DL (0.2-1.0); TOTAL PROTEIN 6.1 GM/DL (6.4-8.2)
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
[2018-02-22] MEDS: SODIUM CHLOR 0.9% 1000 ML INJ 1,000 ML IV SCH (08:52)
[2018-02-22] MEDS: ALLOPURINOL 300 MG TAB PO SCH ×2 (09:00→09:48)
[2018-02-22] MEDS ORDERED: OXcarbazepine 600 MG TAB PO SCH (09:00)
[2018-02-22] MEDS: DOCUSATE SODIUM 50 MG/SENNA 8.6 MG TAB PO SCH ×2 (09:00→09:48)
[2018-02-22] MEDS ORDERED: ARTIFICIAL TEARS OPTH SOLN 15 ML BTL EACH EYE SCH (09:00)
[2018-02-22] MEDS: PYRIDOXINE HCL 50 MG TAB PO SCH ×2 (09:00→09:48)
[2018-02-22] MEDS ORDERED: SODIUM CHLORIDE 0.9% FLUSH 10 ML FLUSH IV FLUSH SCH (09:00)
[2018-02-22] MEDS: FERROUS SULFATE 325 MG (65 MG ELEMENTAL IRON) TAB PO SCH ×2 (09:00→09:48)
[2018-02-22] MEDS: PANTOPRAZOLE SOD 40 MG DELAYED RELEASE TAB PO SCH ×2 (09:00→10:00)
[2018-02-22] MEDS ORDERED: POTA4.25 PO (10:25)
[2018-02-22] MEDS ORDERED: PYRI100T PO (10:25)
[2018-02-22] MEDS ORDERED: PROT40TA PO (10:25)
[2018-02-22] MEDS ORDERED: ALLO300T2 PO (10:25)
[2018-02-22] MEDS ORDERED: FERR324T4 PO (10:25)
[2018-02-22] MEDS ORDERED: HYDR25TA5 PO (10:25)
[2018-02-22] MEDS ORDERED: TRAZ50TA12 PO (10:25)
[2018-02-22] MEDS ORDERED: PROM1SUP9 RECTAL (10:25)
[2018-02-22] MEDS ORDERED: PROZ40CA PO (10:25)
[2018-02-22] MEDS ORDERED: ZOFR4TAB3 SL (10:25)
--- NOTE | 2018-02-22 10:26 | HHI.DCPOC ---
Discharge Care Plan Diagnosis: (1) Anxiety (2) Right flank pain (3) Seizure disorder Goals to Promote Your Health * To prevent worsening of your condition and complications * To maintain your health at the optimal level Directions to Meet Your Goals Take your medications as prescribed Follow your dietary instruction Follow activity as directed Keep your appointments as scheduled Take your immunizations and boosters as scheduled If your symptoms worsen call your PCP, if no PCP go to Urgent Care Center or Emergency Room Smoking is Dangerous to Your Health. Avoid second hand smoke Call the 24-hour hour crisis hotline for domestic abuse at Larisa Quintanilla MD Feb 22, 2018 10:25
--- NOTE | 2018-02-22 10:30 | HHI.PR ---
Subjective Remarks Patient seen in follow-up of seizure medications after having run out of medications. No further witnessed seizures although patient is complaining of some anxiety and shaking. She would like to go home and follow-up with her neurologist in [place] Objective Vital Signs Date Time Temp Pulse Resp B/P (MAP) Pulse Ox O2 Delivery O2 Flow Rate FiO2 02/22/18 09:22 02/22/18 08:55 104 18 93/56 (68) 99 Room Air 02/22/18 07:36 105 18 95/56 (69) 99 Room Air 02/22/18 07:14 16 02/22/18 07:04 99.9 100 18 83/46 (58) 99 Room Air 02/22/18 05:05 95 16 72/45 (54) 100 Room Air 02/22/18 04:59 85 16 96/56 (69) 100 Room Air 02/22/18 03:35 82 16 128/77 (94) 97 Room Air 02/22/18 02:40 88 16 116/63 (80) 98 Room Air 02/22/18 01:30 98 18 105/63 (77) 100 Room Air 02/22/18 00:50 98 21 02/22/18 00:30 85 16 122/65 (84) 100 Room Air 02/21/18 23:19 98 18 129/75 (93) 100 Nasal Cannula 2.00 02/21/18 21:30 97.0 90 16 103/50 (67) 100 Nasal Cannula 2.00 02/21/18 20:30 95 16 110/63 (79) 100 Nasal Cannula 2.00 02/21/18 19:44 99 Room Air 02/21/18 19:30 Room Air 02/21/18 19:17 98.8 101 16 118/82 (94) 99 I/O 02/21/18 02/21/18 02/21/18 02/22/18 02/22/18 02/22/18 07:00 15:00 23:00 07:00 15:00 23:00 Intake Total 1000 ml 288 ml 240 ml Output Total 400 ml Balance 1000 ml 288 ml -160 ml Intake Oral 240 ml IV Total 1000 ml 288 ml Output Urine Total 400 ml # Voids 1 Result Diagram: 02/22/18 0658 02/22/18 0658 Imaging Last Impressions Head CT 02/21/18 0000 Signed Impressions: Service Date/Time: Wednesday, February 21, 2018 20:41 - CONCLUSION: No acute disease. Pop Rivera MD Objective Remarks GENERAL: This is a well-nourished, well-developed patient, tearful CARDIOVASCULAR: Regular rate and rhythm without murmurs, gallops, or rubs. RESPIRATORY: Clear to auscultation. Breath sounds equal bilaterally. No wheezes , rales, or rhonchi. GASTROINTESTINAL: Complaining of right flank pain with gentle touch, abdomen soft, non-tender, nondistended. Normal active bowel sounds MUSCULOSKELETAL: Extremities without clubbing, cyanosis, or edema. NEURO: Alert & Oriented x4 to person, place, time, situation. Moves all ext x4 A/P Problem List: (1) Anxiety ICD Code: F41.9 - Anxiety Status: Acute Assessment & Plan: Patient doing better his lungs he follows up her outpatient medical team (2) Seizure disorder ICD Code: G40.909 - Epilepsy, unspecified, not intractable, without status epilepticus Assessment & Plan: Home medications have been resumed Patient will be followed up with her neurologist as an outpatient She has refused further testing here in the hospital of note patient did request to refill her narcotics and benzodiazepines however I did declined to do this and instructed the patient to follow-up with her primary care provider and/or furniture painter she did agree Discharge Planning Discharge home Activity as tolerated no driving for 12 months Diet Larisa Bear MD Feb 22, 2018 10:30
--- NOTE | 2018-02-22 15:35 | EKG ---
Date Performed: 02/21/2018 Time Performed: 21:49:41 PTAGE: 32 years EKG: Sinus rhythm NORMAL ECG Since the PREVIOUS TRACING , no significant change noted PREVIOUS TRACIN04/14/2017 11.44 DOCTOR: Christos Muñoz Interpretating Date/Time 02/22/2018 15:24:31
[2018-02-23] MEDS ORDERED: INFLUENZA VIRUS VACCINE (QUADRIVALENT) 0.5 ML SYR IM ONE (10:00)
[2018-02-23] MEDS ORDERED: PNEUMOCOCCAL POLYVALENT INJ 25 MCG/0.5 ML SYR IM ONE (10:00)
== END 2018-02-22 11:23 | disposition home or self-care (01) | DRG 101 ==
LOC: PHED 19:09 → PHEDA 21:16 → PHEDH 02-22 01:16 → PH3A 02-22 09:10
PROVIDERS: ADMIT Internal Medicine Critical Care Medicine; ATTEND Internal Medicine Critical Care Medicine
DX: G40.411 Other generalized epilepsy and epileptic syndromes, intractable, with status epilepticus (principal); I95.9 Hypotension, unspecified; F41.9 Anxiety disorder, unspecified; E16.2 Hypoglycemia, unspecified; G89.29 Other chronic pain; R10.9 Unspecified abdominal pain; F17.210 Nicotine dependence, cigarettes, uncomplicated
CPT/HCPCS: 70450; 80053; 80307; 81001; 83735; 84100; 84703; 85025; 85610; 85730; 93005; 96361; 96374; 96375; J1165; J2060; J7030

== ENCOUNTER 2018-03-23 00:37 | Emergency (ER) | payer MEDICAID, OTHER ==
[~2018-03-23] VITALS: Ht 157.5 cm; Wt 51.0 kg
[~2018-03-23 00:37] MED LIST changes: -BACT800T5 PO; +TRIL600T PO
[2018-03-23 00:40] VITALS: BP 129/84; PULSE 77; RESP 22; TEMP 98.2; O2SAT 100
[2018-03-23 00:56] VITALS: BP 135/99; PULSE 80; RESP 30; O2SAT 98
[2018-03-23] MEDS ORDERED: ALPRAZolam 1 MG TAB PO ONE (01:15)
[2018-03-23] MEDS ORDERED: ALPRAZolam 0.5 MG TAB PO ONE (01:15)
[2018-03-23] MEDS ORDERED: ALPR.5 PO (01:48)
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
[2018-03-23 02:09] VITALS: BP 105/75
== END 2018-03-23 02:15 | disposition home or self-care (01) ==
LOC: PHED 00:37
DX: F41.9 Anxiety disorder, unspecified (principal); R06.02 Shortness of breath; F41.0 Panic disorder [episodic paroxysmal anxiety]; G40.909 Epilepsy, unspecified, not intractable, without status epilepticus; D64.9 Anemia, unspecified; I25.10 Atherosclerotic heart disease of native coronary artery without angina pectoris; F17.200 Nicotine dependence, unspecified, uncomplicated; Z87.19 Personal history of other diseases of the digestive system; Z87.442 Personal history of urinary calculi
CPT/HCPCS: 99283

== ENCOUNTER 2018-04-23 23:53 | Emergency (ER) | payer MEDICAID ==
[~2018-04-23] VITALS: Ht 157.5 cm; Wt 44.6 kg
[~2018-04-23 23:53] MED LIST changes: +ALPR.5 PO
[2018-04-24 00:07] VITALS: BP 132/87; PULSE 103; RESP 16; TEMP 98; O2SAT 100
== END 2018-04-24 03:13 | disposition left against medical advice (07) ==
LOC: PHED 23:53
DX: L08.9 Local infection of the skin and subcutaneous tissue, unspecified (principal); Z53.21 Procedure and treatment not carried out due to patient leaving prior to being seen by health care provider
CPT/HCPCS: 99281